=== PATIENT | female | born 1975 | race Two or more races ===

== ENCOUNTER 2021-08-24 05:15 | Inpatient (IN) | payer MEDICAID, OTHER ==
[~2021-08-24] VITALS: Ht 152.4 cm; Wt 64.1 kg
[2021-08-24 07:27] LABS: Basophils # (auto) 0.1 10 ^3/uL (0-0.2); Basophils % (auto) 1.5 % (0.0-2.0); Eosinophils # (auto) 0.2 10 ^3/uL (0-0.8); Hematocrit 29.2 % (36.0-46.0); Hemoglobin 9.8 g/dL (12.2-16.2); Lymphocytes # (auto) 0.6 10 ^3/uL (0.4-5.4); Lymphocytes % (auto) 6.8 % (10.0-50.0); Mean Corpuscular Hemoglobin 31.5 pg (28.0-32.0); Mean Corpuscular Hgb Conc. 33.5 g/dL (32.0-36.0); Monocytes # (auto) 0.5 10 ^3/uL (0-1.3); Monocytes % (auto) 5.6 % (0.0-12.0); Neutrophils # (auto) 7.2 10 ^3/uL (1.6-8.6); Neutrophils % (auto) 84.1 % (37.0-80.0); Nucleated Red Blood Cells % 0.1 %; Red Cell Distribution Width 14.7 % (11.8-14.3); White Blood Cell 8.5 10^3/uL (4.4-10.8)
[2021-08-24 07:45] LABS: Albumin 3.2 g/dL (3.4-5.0); Calcium 6.8 mg/dL (8.5-10.1); Potassium 5.5 mmol/L (3.5-5.1)
[2021-08-24 07:48] LABS: BUN/Creatinine Ratio 8.3; Bilirubin, Total 0.3 mg/dL (0.2-1.0); Total Protein 6.8 g/dL (6.4-8.2)
[2021-08-24] MEDS ORDERED: HYDROcodone-ACET 5/325MG TAB PO ONE (11:15)
[2021-08-24] MEDS ORDERED: DEXTROSE (50%) 50ML SYRG IV PRN (15:15)
[2021-08-24] MEDS ORDERED: hydrALAZINE HCL 20 MG/ML VL IV PRN (15:15)
[2021-08-24 15:54] LABS: Cholesterol 110 mg/dL (< 200)
[2021-08-24 15:57] LABS: HDL Cholesterol 52 mg/dL (40-59); LDL Cholesterol 48 mg/dL (< 100); Triglycerides 86 mg/dL (< 150)
[2021-08-24] MEDS: ACCU-CHEK COMFORT CURVE STRIP VI SCH ×2 (18:00→22:19)
[2021-08-24] MEDS: InsuLIN REG 1unit/0.01ml Soln (100units/ml) SC SCH ×2 (18:00→22:18)
[2021-08-24] MEDS ORDERED: FERR1TAB17 PO (18:48)
[2021-08-24] MEDS ORDERED: CALC10TA PO (18:48)
[2021-08-24] MEDS: MORPHINE SULFATE INJ 2 MG/ml SYRG IV PRN (21:43)
[2021-08-24 22:00] VITALS: BP 116/55
[2021-08-24] MEDS: SODIUM ZIRCONIUM CYCL 10 GM PAK PO SCH (22:00)
[2021-08-25] MEDS: ONDANSETRON HCL 4 MG/2 ML VIAL IV PRN (00:33)
[2021-08-25] MEDS: MORPHINE SULFATE INJ 2 MG/ml SYRG IV PRN ×3 (03:46→22:00)
[2021-08-25 05:00] VITALS: BP 121/56
[2021-08-25] MEDS: SODIUM ZIRCONIUM CYCL 10 GM PAK PO SCH ×2 (06:11→14:58)
[2021-08-25] MEDS: InsuLIN REG 1unit/0.01ml Soln (100units/ml) SC SCH ×4 (06:12→21:00)
[2021-08-25] MEDS: ACCU-CHEK COMFORT CURVE STRIP VI SCH ×4 (06:12→21:13)
[2021-08-25] MEDS ORDERED: SODIUM CHL 0.9% 1000 ML BAG XX ONE (07:00)
[2021-08-25 07:38] LABS: Albumin 3.1 g/dL (3.4-5.0); BUN/Creatinine Ratio 7.9; Bilirubin, Total 0.4 mg/dL (0.2-1.0); Calcium 6.5 mg/dL (8.5-10.1); Total Protein 6.7 g/dL (6.4-8.2)
[2021-08-25 07:50] LABS: Basophils # (auto) 0 10 ^3/uL (0-0.2); Basophils % (auto) 0.2 % (0.0-2.0); Eosinophils # (auto) 0 10 ^3/uL (0-0.8); Eosinophils % (auto) 0.4 % (0.0-7.0); Hematocrit 33.1 % (36.0-46.0); Hemoglobin 9.8 g/dL (12.2-16.2); Lymphocytes # (auto) 0.7 10 ^3/uL (0.4-5.4); Lymphocytes % (auto) 7.7 % (10.0-50.0); Mean Corpuscular Hemoglobin 31.3 pg (28.0-32.0); Mean Corpuscular Hgb Conc. 29.6 g/dL (32.0-36.0); Mean Corpuscular Volume 105.8 fL (80.0-100.0); Monocytes # (auto) 0.4 10 ^3/uL (0-1.3); Monocytes % (auto) 4.4 % (0.0-12.0); Neutrophils # (auto) 7.7 10 ^3/uL (1.6-8.6); Neutrophils % (auto) 87.3 % (37.0-80.0); Nucleated Red Blood Cells % 0.1 %; Red Blood Cells 3.13 10^6/uL (4.0-5.20); Red Cell Distribution Width 15.9 % (11.8-14.3); White Blood Cell 8.9 10^3/uL (4.4-10.8)
[2021-08-25 08:25] LABS: Potassium 6.2 mmol/L (3.5-5.1)
[2021-08-25 08:47] VITALS: BP 133/59
[2021-08-25 13:00] VITALS: BP 99/43
[2021-08-25] MEDS ORDERED: ALBUMIN 25% 100 ML IV ONE ×2 (14:34→14:45)
[2021-08-25 16:58] VITALS: BP 130/63
[2021-08-25] MEDS ORDERED: EPOETIN ALFA-EPBX 10,000 UNIT/1ML VIAL SC ONE (21:00)
[2021-08-25 22:00] VITALS: BP 161/69
[2021-08-26 05:00] VITALS: BP 123/52
[2021-08-26 05:16] LABS: Basophils # (auto) 0 10 ^3/uL (0-0.2); Basophils % (auto) 0.6 % (0.0-2.0); Eosinophils # (auto) 0.2 10 ^3/uL (0-0.8); Eosinophils % (auto) 2.6 % (0.0-7.0); Hematocrit 26.5 % (36.0-46.0); Hemoglobin 8.9 g/dL (12.2-16.2); Lymphocytes # (auto) 0.8 10 ^3/uL (0.4-5.4); Lymphocytes % (auto) 10.1 % (10.0-50.0); Mean Corpuscular Hemoglobin 31.5 pg (28.0-32.0); Mean Corpuscular Hgb Conc. 33.4 g/dL (32.0-36.0); Mean Corpuscular Volume 94.2 fL (80.0-100.0); Monocytes # (auto) 0.6 10 ^3/uL (0-1.3); Neutrophils % (auto) 78.7 % (37.0-80.0); Red Blood Cells 2.82 10^6/uL (4.0-5.20); Red Cell Distribution Width 15.1 % (11.8-14.3); White Blood Cell 7.6 10^3/uL (4.4-10.8)
[2021-08-26 05:34] LABS: BUN/Creatinine Ratio 6.7; Calcium 6.3 mg/dL (8.5-10.1); Potassium 4.1 mmol/L (3.5-5.1)
[2021-08-26] MEDS: InsuLIN REG 1unit/0.01ml Soln (100units/ml) SC SCH ×4 (05:35→23:42)
[2021-08-26] MEDS: ACCU-CHEK COMFORT CURVE STRIP VI SCH ×4 (05:35→23:40)
[2021-08-26] MEDS: ONDANSETRON HCL 4 MG/2 ML VIAL IV PRN ×2 (05:35→17:50)
[2021-08-26 08:00] VITALS: BP 156/66
[2021-08-26] MEDS: MORPHINE SULFATE INJ 2 MG/ml SYRG IV PRN (09:29)
[2021-08-26 12:00] VITALS: BP 153/72
[2021-08-26 16:00] VITALS: BP 108/47
[2021-08-26 20:00] VITALS: BP 141/64
[2021-08-26] MEDS: SENNA 8.6 MG TAB PO SCH (21:10)
[2021-08-26 22:00] VITALS: BP 141/64
[2021-08-26] MEDS: HYDROcodone-ACET 7.5/325MG TAB PO PRN (22:58)
[2021-08-27] MEDS: MORPHINE SULFATE INJ 2 MG/ml SYRG IV PRN ×2 (00:58→22:57)
[2021-08-27] MEDS: ONDANSETRON HCL 4 MG/2 ML VIAL IV PRN (02:13)
[2021-08-27 05:00] VITALS: BP 117/54
[2021-08-27] MEDS: InsuLIN REG 1unit/0.01ml Soln (100units/ml) SC SCH ×4 (06:00→23:48)
[2021-08-27] MEDS: ACCU-CHEK COMFORT CURVE STRIP VI SCH ×4 (06:52→23:48)
[2021-08-27 08:30] VITALS: BP 153/64
[2021-08-27 09:00] VITALS: BP 153/64
[2021-08-27 10:38] LABS: Albumin 3.1 g/dL (3.4-5.0); Potassium 4.9 mmol/L (3.5-5.1)
[2021-08-27 10:44] LABS: BUN/Creatinine Ratio 7.1; Bilirubin, Total 0.7 mg/dL (0.2-1.0); Total Protein 6.4 g/dL (6.4-8.2)
[2021-08-27 11:00] LABS: Calcium 5.7 mg/dL (8.5-10.1)
[2021-08-27 11:05] LABS: Basophils # (auto) 0 10 ^3/uL (0-0.2); Basophils % (auto) 0.9 % (0.0-2.0); Eosinophils # (auto) 0.2 10 ^3/uL (0-0.8); Hematocrit 26.7 % (36.0-46.0); Hemoglobin 8.8 g/dL (12.2-16.2); Lymphocytes # (auto) 0.8 10 ^3/uL (0.4-5.4); Lymphocytes % (auto) 13.3 % (10.0-50.0); Mean Corpuscular Hemoglobin 31.6 pg (28.0-32.0); Mean Corpuscular Hgb Conc. 33.1 g/dL (32.0-36.0); Mean Corpuscular Volume 95.7 fL (80.0-100.0); Monocytes # (auto) 0.4 10 ^3/uL (0-1.3); Monocytes % (auto) 7.2 % (0.0-12.0); Neutrophils # (auto) 4.3 10 ^3/uL (1.6-8.6); Neutrophils % (auto) 75.6 % (37.0-80.0); Nucleated Red Blood Cells % 0.1 %; Red Blood Cells 2.79 10^6/uL (4.0-5.20); White Blood Cell 5.7 10^3/uL (4.4-10.8)
[2021-08-27] MEDS ORDERED: SODIUM CHL 0.9% 1000 ML BAG XX ONE (12:30)
[2021-08-27] MEDS ORDERED: HYDR-4069 PO (12:37)
[2021-08-27 13:00] VITALS: BP 134/69
[2021-08-27 17:00] VITALS: BP 174/77
[2021-08-27] MEDS: CALCIUM ACETATE 667 MG CAP PO SCH (17:48)
[2021-08-27] MEDS ORDERED: EPOETIN ALFA-EPBX 10,000 UNIT/1ML VIAL SC ONE (21:00)
[2021-08-27 22:01] VITALS: BP 150/59
[2021-08-27] MEDS: SENNA 8.6 MG TAB PO SCH (22:09)
[2021-08-28] MEDS: MORPHINE SULFATE INJ 2 MG/ml SYRG IV PRN (04:47)
[2021-08-28 04:57] VITALS: BP 163/67
[2021-08-28] MEDS: ACCU-CHEK COMFORT CURVE STRIP VI SCH ×3 (06:04→18:00)
[2021-08-28] MEDS: InsuLIN REG 1unit/0.01ml Soln (100units/ml) SC SCH ×3 (06:06→18:00)
[2021-08-28 09:00] VITALS: BP 146/64
[2021-08-28] MEDS: CALCIUM ACETATE 667 MG CAP PO SCH ×3 (09:04→18:32)
[2021-08-28 13:00] VITALS: BP 178/75
[2021-08-28 14:27] VITALS: BP 146/64
[2021-08-28] MEDS ORDERED: PERCOT PO (16:18)
[2021-08-28 17:00] VITALS: BP 123/60
[2021-08-28] MEDS: HYDROcodone-ACET 7.5/325MG TAB PO PRN (18:41)
[2021-08-29] MEDS ORDERED: SODIUM CHL 0.9% 1000 ML BAG XX ONE (07:00)
[2021-08-29] MEDS ORDERED: EPOETIN ALFA-EPBX 10,000 UNIT/1ML VIAL SC ONE (21:00)
== END 2021-08-28 18:59 | disposition home health service (06) | DRG 341 ==
LOC: ER 05:15 → EDBD 05:15 → OVERFLOW 15:00 → CENTRAL 17:28
PROVIDERS: ADMIT Registered Nurse; ATTEND Internal Medicine Pulmonary Disease
PROC: 5A1D70Z Performance of Urinary Filtration, Intermittent, Less than 6 Hours Per Day (ICD-10-PCS; principal; 2021-08-25)
PROC: 5A1D70Z Performance of Urinary Filtration, Intermittent, Less than 6 Hours Per Day (ICD-10-PCS; 2021-08-27)
DX: S32.592A Other specified fracture of left pubis, initial encounter for closed fracture (principal); I12.0 Hypertensive chronic kidney disease with stage 5 chronic kidney disease or end stage renal disease; D63.1 Anemia in chronic kidney disease; E11.22 Type 2 diabetes mellitus with diabetic chronic kidney disease; Z93.0 Tracheostomy status; N18.6 End stage renal disease; E11.65 Type 2 diabetes mellitus with hyperglycemia; S90.02XA Contusion of left ankle, initial encounter; Z20.822 Contact with and (suspected) exposure to COVID-19; E87.5 Hyperkalemia; S60.221A Contusion of right hand, initial encounter; Z99.2 Dependence on renal dialysis; Z90.49 Acquired absence of other specified parts of digestive tract; V29.88XA Motorcycle rider (driver) (passenger) injured in other specified transport accidents, initial encounter; Y93.89 Activity, other specified; Y92.89 Other specified places as the place of occurrence of the external cause; Y99.8 Other external cause status
CPT/HCPCS: 36415; 70450; 71045; 72125; 72170; 73130; 73630; 74176; 80048; 80053; 80061; 82728; 82962; 83036; 84484; 84702; 85025; 87340; 90935; 93005; 96374; 97116; 97163; 97530; G0378; J1815; J2405; P9047

== ENCOUNTER 2025-01-14 10:21 | Emergency (ER) | payer MEDICAID ==
[~2025-01-14] VITALS: Ht 154.9 cm; Wt 55.0 kg
[~2025-01-14 10:21] MED LIST: CALC10TA PO; FERR1TAB17 PO
--- NOTE | 2025-01-14 10:43 | ED.PDOC ---
History of Present Illness HPI Comments This is a 49 year old female presenting to the ED with chief complaint of abnormal labs. Patient reports that she was at dialysis today when her data analyst advised her to come to the ED due to low hemoglobin and needing a transfusion. Patient relays that she is currently experiencing associated generalized weakness. Patient denies any chest pain, SOB, N/V, dizziness, or headache. Chief Complaint: Abnormal LAB's Time Seen by MD: 10:42 Reviewed Notes: Nurses Notes, Medications, Allergies Allergies: Coded Allergies: NO KNOWN ALLERGIES (Unverified , 08/24/21) Home Meds Reported Medications Ferric Citrate (Auryxia) 210 Mg Tab, 210 MG PO TID, TAB 08/24/21 Calcium Acetate (CALCIUM ACETATE) 667 Mg Tab, 667 MG PO TID, TAB 08/24/21 Information Source: Patient Mode of Arrival: Ambulatory Severity: Moderate Timing: Hours Duration: Since onset Prehospital treatment: None Past Medical History PAST MEDICAL HISTORY: DM, ESRD, HTN Surgical History: Cholecystectomy, Hernia Repair SENIOR CORPORATE RECRUITER History: No Pertinent SENIOR CORPORATE RECRUITER History Family History Family History: Reviewed,noncontributory to illness Social History Smoker: Non-Smoker Alcohol: Denies ETOH Use Drugs: Denies Drug Use Lives In: Home Constitutional: reports: weakness; denies: chills, diaphoresis, fatigue, fever, malaise, sweats, others EENTM: denies: blurred vision, double vision, ear bleeding, ear discharge, ear drainage, ear pain, ear ringing, eye pain, eye redness, hearing loss, mouth pain, mouth swelling, nasal discharge, nose bleeding, nose congestion, nose pain, photophobia, tearing, throat pain, throat swelling, voice changes, others Respiratory: denies: cough, hemoptysis, orthopnea, SOB at rest, shortness of breath, SOB with excertion, stridor, wheezing, others Cardiovascular: denies: chest pain, dizzy spells, diaphoresis, Dyspnea on exertion, edema, irregular heart beat, left arm pain, lightheadedness, palpitations, PND, syncope, others Gastrointestinal: denies: abdomen distended, abdominal pain, blood streaked bowels, constipated, diarrhea, dysphagia, difficulty swallowing, hematemesis, melena, nausea, poor appetite, poor fluid intake, rectal bleeding, rectal pain, vomiting, others Genitourinary: denies: abnormal vagina bleeding, burning, dyspareunia, dysuria, flank pain, frequency, hematuria, incontinence, pain, , vagina discharge, urgency, others Neurological: denies: dizziness, fainting, headache, left sided numbness, left sided weakness, numbness, paresthesia, pre-existing deficit, right sided numbness, right sided weakness, seizure, speech problems, tingling, tremors, weakness, others Musculoskeletal: denies: back pain, gout, joint pain, joint swelling, muscle pain, muscle stiffness, neck pain, others Integumetry: denies: bruises, change in color, change in hair/nails, dryness, laceration, lesions, lumps, rash, wounds, others Allergic/Immunocompromised: denies: Difficulty Healing, Frequent Infections, Hives, Itching, others Hematologic/Lymphatic: denies: anemia, blood clots, easy bleeding, easy bruising, swollen glands, others Endocrine: denies: excessive hunger, excessive sweating, excessive thirst, excessive urination, flushing, intolerance to cold, intolerance to heat, unexplained weight gain, unexplained weight loss, others Psychiatric: denies: anxiety, bipolar disorder, depression, hopeless, panic disorder, schizophrenia, sleepless, suicidal, others All Other Systems: Reviewed and Negative Physical Exam General Appearance: Moderate Distress, Normal HEENT: Normal ENT Inspection, Pharynx Normal, TMs Normal Neck: Full Range of Motion, Non-Tender, Normal, Normal Inspection Respiratory: Chest Non-Tender, Lungs Clear, No Accessory Muscle Use, No Respiratory Distress, Normal Breath Sounds Cardiovascular: No Edema, No JVD, No Murmur, No Gallop, Normal Peripheral Pulses, Regular Rate/Rhythm Breast Exam: Deferred Gastrointestinal: No Organomegaly, Non Tender, No Pulsatile Mass, Normal Bowel Sounds, Soft Genitalia: Deferred Pelvic: Deferred Rectal: Deferred Extremities: No calf tenderness, Normal capillary refill, Normal inspection, Normal range of motion, Non-tender, No pedal edema Musculoskeletal : Apperance: Normal Neurologic: Alert, flash drier operator II-XII nml as Tested, No Motor Deficits, Normal Affect, Normal Mood, No Sensory Deficits Cerebellar Function: Normal Reflexes: Normal Skin: Dry, Pallor, Warm Peripheral Pulses: 3+ Radial (R), 3+ Radial (L) Lymphatic: No Adenopathy Was a procedure done? Was a procedure done?: No Differential Dx Considerations may include: Anemia Electrolyte imbalance X-Ray, Labs, Meds, VS Vital Signs Date Time Temp Pulse Resp B/P (MAP) Pulse Ox O2 Delivery O2 Flow Rate FiO2 01/14/25 10:24 98.0 72 18 178/74 96 98.0 Patient alert. She is pale. Vitals stable. Possible anemia. Blood pressure elevated. Was given clonidine. History of chronic kidney disease on dialysis. Explained to the patient. Continue monitoring. Time of 1ST Reevaluation: 11:39 Reevaluation 1ST: Unchanged Patient Education/Counseling: Diagnosis, Treatment Family Education/Counseling: No Family Present SEPSIS Sepsis Screen Date sepsis recognized/suspect: Jan 14, 2025 Time Sepsis recognized/suspect: 1024 Recent Procedure: No On Antibiotic Therapy: No Respiratory Rate >20: No Heart Rate >90: No Temp<36 C (96.8 F) or >38.3 C: No SBP <90 or MAP <65 mmHG: No New Acute Mental Status Change: No Is the patient on CPAP, BIPAP,: No Physician Orders Complete Blood Count (01/14/25 10:28) Urinalysis (01/14/25 10:28) Basic Metabolic Panel (01/14/25 10:28) Vital Signs Date Time Temp Pulse Resp B/P (MAP) Pulse Ox O2 Delivery O2 Flow Rate FiO2 01/14/25 10:24 98.0 72 18 178/74 96 98.0 Departure 1 Departure Time of Disposition: 10:52 Impression: Primary Impression: Hypertensive urgency Additional Impressions: Severe anemia Chronic kidney disease on chronic dialysis Disposition: ADMITTED INPATIENT Admit to: Med Surg Condition: Guarded Critical Care Note Critical Care Time?: Yes (90 min-critical care time only) Stability Stability form required: No Heart Score Heart Score: Heart Score Response (Comments) Value History N/A 0 EKG N/A 0 Age N/A 0 Risk Factors N/A 0 Troponin N/A 0 Total 0 I personally scribed for ANDRAE CARNEY MD ([email or web address]) on 01/14/25 at 10:43. Electronically submitted by Demarco Delgadillo ([email or web address]). ANDRAE CARNEY MD Jan 14, 2025 10:43
[2025-01-14 11:37] LABS: Hematocrit 26.6 % (36.0-46.0); Hemoglobin 8.5 g/dL (12.2-16.2); Mean Corpuscular Hemoglobin 29.0 pg (28.0-32.0); Mean Corpuscular Volume 90.3 fL (80.0-100.0); Nucleated Red Blood Cells % 0.0 %
[2025-01-14 11:42] LABS: Anion Gap 14 (5-15); Carbon Dioxide 28 mmol/L (20-31); Chloride 93 mmol/L (98-107); Potassium 3.7 mmol/L (3.5-5.1); Sodium 135 mmol/L (136-145)
[2025-01-14 11:43] LABS: Calcium 7.6 mg/dL (8.7-10.4)
[2025-01-14 11:48] LABS: BUN/Creatinine Ratio 4.5 (10.0-20.0); Blood Urea Nitrogen 18 mg/dL (9-23)
[2025-01-14 11:51] LABS: Glucose 373 mg/dL (74-106)
[2025-01-14 14:23] VITALS: BP 192/99; PULSE 65; RESP 12; TEMP 98.2; O2SAT 99
== END 2025-01-14 14:52 | disposition left against medical advice (07) ==
LOC: ER 10:21
DX: I12.0 Hypertensive chronic kidney disease with stage 5 chronic kidney disease or end stage renal disease (principal); E11.22 Type 2 diabetes mellitus with diabetic chronic kidney disease; N18.6 End stage renal disease; D64.9 Anemia, unspecified; I16.0 Hypertensive urgency; Z90.49 Acquired absence of other specified parts of digestive tract; Z98.890 Other specified postprocedural states; Z99.2 Dependence on renal dialysis
CPT/HCPCS: 36415; 80048; 85025; 99291; 99292